=== PATIENT | female | born 1935 | race Caucasian/White ===

== ENCOUNTER 2024-04-01 11:23 | Emergency (ER) | payer MEDICARE ==
--- NOTE | 2024-04-01 11:25 | ERPHSYRPT ---
- History of Present Illness Time Seen by Provider: 04/01/24 11:24 Source: patient, family Exam Limitations: no limitations Physician History: This is an 88-year-old white female patient who arrives by private vehicle accompanied by family member. She has a primary care provider of Dr. Bonner. According to the patient's family member, patient was seen in the clinic today because the patient had swelling and tenderness that she describes as sharp, and redness. She is also has complaints of generalized weakness. Patient has a history of significant dementia and has 24-hour care at home. Patient has a history of hypertension, hyperlipidemia and gastroesophageal reflux disease. Patient denies abdominal pain. Patient denies chest pain and patient denies shortness of breath Timing/Duration: yesterday Severity: mild (To moderate) Modifying Factors: Improves With: nothing Associated Symptoms: weakness (Generalized) Allergies/Adverse Reactions: Sulfa (Sulfonamide Antibiotics) [Sulfa(Sulfonamide Antibiotics)] Allergy (Verified 06/08/12 13:37) Hives Home Medications: Amlodipine Besylate 5 mg [Norvasc 5 mg] 5 mg PO DAILY 04/01/24 [History] Carvedilol 3.125 mg [Coreg 3.125 MG] 3.125 mg PO BID 04/01/24 [History] Clopidogrel Bisulfate [Clopidogrel] 75 mg PO DAILY 04/01/24 [History] Lisinopril 20 mg [Zestril 20 MG] 20 mg PO DAILY 04/01/24 [History] Memantine HCl 10 mg PO BID 04/01/24 [History] PANTOPRAZOLE 40 mg Tablet [Protonix 40MG Tablet] 40 mg PO DAILY 04/01/24 [History] Sennosides/Docusate Sodium [Senna Plus 8.6-50 mg Tablet] 1 each PO DAILY 04/01/24 [History] Simvastatin 20Mg [Zocor 20Mg] 20 mg PO DAILY 04/01/24 [History] Hx Tetanus, Diphtheria Vaccination/Date Given: No Hx Influenza Vaccination/Date Given: Yes Hx Pneumococcal Vaccination/Date Given: Yes Travel Risk - International Travel Have you traveled outside of the country in past 3 weeks: No - Emerging Infectious Disease Are you exhibiting symptoms associated with any current EIDs: No - Review of Systems Constitutional: Weakness Eyes: No Symptoms (Neurolysed) Ears, Nose, & Throat: No Symptoms Respiratory: No Symptoms Cardiac: No Symptoms Abdominal/Gastrointestinal: No Symptoms Genitourinary Symptoms: No Symptoms Musculoskeletal: Other (Right lower extremity swelling, redness and sharp tenderness) Skin: Cellulitis (Questionable right lower extremity) Neurological: No Symptoms Psychological: No Symptoms Endocrine: No Symptoms Hematologic/Lymphatic: No Symptoms Immunological/Allergic: No Symptoms All Other Systems: Reviewed and Negative - Past Medical History Pertinent Past Medical History: No - Past Surgical History Past Surgical History: No - Social History Smoking Status: Never smoker Exposure to second hand smoke: No Drug Use: none Patient Lives Alone: No - Nursing Vital Signs Nursing Vital Signs: Initial Vital Signs Temperature 97.0 F 04/01/24 11:53 Pulse Rate 77 04/01/24 11:53 Respiratory Rate 16 04/01/24 11:53 Blood Pressure 103/69 04/01/24 11:53 O2 Sat by Pulse Oximetry 98 04/01/24 11:53 Pain Scale Pain Intensity 4 - Physical Exam General Appearance: no apparent distress, alert, anxiety, other (Pleasantly confused) Eye Exam: PERRL/EOMI, eyes nml inspection Ears, Nose, Throat Exam: normal ENT inspection, moist mucous membranes Neck Exam: normal inspection, non-tender, supple, full range of motion Respiratory Exam: normal breath sounds, lungs clear, airway intact, No chest tenderness, No respiratory distress Cardiovascular Exam: regular rate/rhythm, normal heart sounds, normal peripheral pulses Gastrointestinal/Abdomen Exam: soft, normal bowel sounds, No tenderness Pelvic Exam: not done Rectal Exam: not done Back Exam: normal inspection, normal range of motion, No CVA tenderness, No vertebral tenderness Extremity Exam: normal range of motion, pelvis stable, swelling (Right lower extremity with associated redness and tenderness), tenderness (Right lower extremity with associated swelling and redness) Neurologic Exam: alert, cooperative, 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 QTc is 414.) Ordered Tests: Active Orders 24 hr Category Date Time Status Shrimper STAT Care 04/01/24 12:06 Active EKG-ER Only STAT Care 04/01/24 12:06 Active IV Insertion STAT Care 04/01/24 12:06 Active Pulse Oximetry (ED) STAT Care 04/01/24 12:06 Active VENOUS UNILAT/LIMITED EXTREMIT [US] Stat Exams 04/01/24 12:07 Completed CBC W DIFF Stat Lab 04/01/24 12:30 Completed CMP Stat Lab 04/01/24 12:30 Completed CULTURE,URINE Stat Lab 04/01/24 12:58 Received MAGNESIUM Stat Lab 04/01/24 12:30 Completed MONO SCREEN Stat Lab 04/01/24 12:30 Completed NT PRO BNPII Stat Lab 04/01/24 12:30 Completed TROPONIN Q4H Lab 04/01/24 12:30 Completed TROPONIN Q4H Lab 04/01/24 16:15 Ordered TROPONIN Q4H Lab 04/01/24 20:15 Ordered UA W/RFX UR CULTURE Stat Lab 04/01/24 12:58 Completed Lab/Rad Data: Laboratory Result Diagrams 04/01/24 12:30 04/01/24 12:30 Laboratory Results 04/01/24 04/01/24 04/01/24 Range/Units 12:58 12:30 12:30 WBC (3.98-10.04) x10^3/uL RBC (3.93-5.22) x10^6/uL Hgb (11.2-15.7) g/dL Hct (34.1-44.9) % MCV (79.4-94.8) fL MCH (25.6-32.2) pg MCHC (32.2-35.5) g/dL RDW (11.7-14.4) % Plt Count (182-369) x10^3/uL MPV (9.4-12.3) fL Gran % (34.0-71.1) % Immature Gran % (Auto) (0.001-0.429) % Nucleat RBC Rel Count (0.00-0.2) % Eos # (Auto) (0.04-0.36) x10^3/uL Immature Gran # (Auto) (0.001-0.031) x10^3u/L Absolute Lymphs (auto) (1.18-3.74) x10^3/uL Absolute Monos (auto) (0.24-0.86) x10^3/uL Absolute Nucleated RBC (0.00-0.012) x10^3u/L Lymphocytes % (19.3-51.7) % Monocytes % (4.7-12.5) % Eosinophils % (0.7-5.8) % Basophils % (0.1-1.2) % Absolute Granulocytes (1.56-6.13) x10^3/uL Basophils # (0.01-0.08) x10^3/uL Sodium (135-145) mmol/L Potassium (3.5-5.1) mmol/L Chloride (98-107) mmol/L Carbon Dioxide (22-30) mmol/L Anion Gap (5-15) MEQ/L BUN (7-17) mg/dL Creatinine (0.52-1.04) mg/dL Estimated GFR ML/MIN Glucose (74-106) mg/dL Calcium (8.4-10.2) mg/dL Magnesium (1.6-2.3) mg/dL Total Bilirubin (0.2-1.3) mg/dL AST (14-36) U/L ALT (0-35) U/L Alkaline Phosphatase (38-126) U/L Troponin I (0.000-0.033) ng/mL NT-Pro-B Natriuret Pep (<300) pg/mL Serum Total Protein (6.3-8.2) g/dL Albumin (3.5-5.0) g/dL Urine Color Dark Yellow A (Yellow) Urine Appearance Clear (Clear) Urine pH 5.5 (4.6-8.0) Ur Specific [place]rie 1.025 (1.005-1.030) Urine Protein Trace A (Negative) Urine Glucose (UA) Negative (Negative) mg/dL Urine Ketones Trace A (Negative) Urine Blood Negative (Negative) Urine Nitrite Negative (Negative) Urine Bilirubin Negative (Negative) Urine Urobilinogen 0.2 (0.2) mg/dL Ur Leukocyte Esterase Negative (Negative) U Hyaline Cast (Auto) NONE SEEN (0-2) /LPF Urine Microscopic RBC 0-2 (0-5) /HPF Urine Microscopic WBC 3-5 (0-5) /HPF Ur Epithelial Cells None Seen (None Seen) /HPF Urine Bacteria None Seen (None Seen) /HPF Urine Culture Reflexed YES (NO) Monoscreen NEGATIVE (NEGATIVE) Influenza Type A Ag NEGATIVE (NEGATIVE) Influenza Type B Ag NEGATIVE (NEGATIVE) RSV (PCR) NEGATIVE (NEGATIVE) SARS-CoV-2 (PCR) NEGATIVE (NEGATIVE) 04/01/24 04/01/24 04/01/24 Range/Units 12:30 12:30 12:30 WBC 7.3 (3.98-10.04) x10^3/uL RBC 3.93 (3.93-5.22) x10^6/uL Hgb 12.2 (11.2-15.7) g/dL Hct 36.2 (34.1-44.9) % MCV 92.1 (79.4-94.8) fL MCH 31.0 (25.6-32.2) pg MCHC 33.7 (32.2-35.5) g/dL RDW 11.8 (11.7-14.4) % Plt Count 155 L (182-369) x10^3/uL MPV 9.5 (9.4-12.3) fL Gran % 69.0 (34.0-71.1) % Immature Gran % (Auto) 0.4 (0.001-0.429) % Nucleat RBC Rel Count 0.0 (0.00-0.2) % Eos # (Auto) 0.04 (0.04-0.36) x10^3/uL Immature Gran # (Auto) 0.03 (0.001-0.031) x10^3u/L Absolute Lymphs (auto) 1.26 (1.18-3.74) x10^3/uL Absolute Monos (auto) 0.92 H (0.24-0.86) x10^3/uL Absolute Nucleated RBC 0.00 (0.00-0.012) x10^3u/L Lymphocytes % 17.2 L (19.3-51.7) % Monocytes % 12.6 H (4.7-12.5) % Eosinophils % 0.5 L (0.7-5.8) % Basophils % 0.3 (0.1-1.2) % Absolute Granulocytes 5.05 (1.56-6.13) x10^3/uL Basophils # 0.02 (0.01-0.08) x10^3/uL Sodium 139 (135-145) mmol/L Potassium 4.7 (3.5-5.1) mmol/L Chloride 105 (98-107) mmol/L Carbon Dioxide 28 (22-30) mmol/L Anion Gap 10.7 (5-15) MEQ/L BUN 22 H (7-17) mg/dL Creatinine 0.69 (0.52-1.04) mg/dL Estimated GFR 83.4 ML/MIN Glucose 77 (74-106) mg/dL Calcium 9.3 (8.4-10.2) mg/dL Magnesium 2.2 (1.6-2.3) mg/dL Total Bilirubin 0.70 (0.2-1.3) mg/dL AST 31 (14-36) U/L ALT 13 (0-35) U/L Alkaline Phosphatase 44 (38-126) U/L Troponin I < 0.012 (0.000-0.033) ng/mL NT-Pro-B Natriuret Pep 219 (<300) pg/mL Serum Total Protein 7.0 (6.3-8.2) g/dL Albumin 4.1 (3.5-5.0) g/dL Urine Color (Yellow) Urine Appearance (Clear) Urine pH (4.6-8.0) Ur Specific [place] (1.005-1.030) Urine Protein (Negative) Urine Glucose (UA) (Negative) mg/dL Urine Ketones (Negative) Urine Blood (Negative) Urine Nitrite (Negative) Urine Bilirubin (Negative) Urine Urobilinogen (0.2) mg/dL Ur Leukocyte Esterase (Negative) U Hyaline Cast (Auto) (0-2) /LPF Urine Microscopic RBC (0-5) /HPF Urine Microscopic WBC (0-5) /HPF Ur Epithelial Cells (None Seen) /HPF Urine Bacteria (None Seen) /HPF Urine Culture Reflexed (NO) Monoscreen (NEGATIVE) Influenza Type A Ag (NEGATIVE) Influenza Type B Ag (NEGATIVE) RSV (PCR) (NEGATIVE) SARS-CoV-2 (PCR) (NEGATIVE) - Progress Progress: unchanged Progress Note: 04/01/24 12:39 My medical decision making and the assignment of moderate complexity to this patient's medical issue today is based on review of the patient's past medical history, review of patient medication list, reviewed patient drug allergy list, history present illness and physical findings on examination. The workup in this patient includes placement of intravenous line, urinalysis, CBC, CMP, blood cultures, twelve-lead EKG, troponin level, right lower extremity venous Doppler. Differential diagnosis includes but is not limited to urinary tract infection, dehydration, right lower extremity DVT, electrolyte abnormalities, arrhythmia, myocardial infarction 04/01/24 14:25 I interpreted the patient's laboratory data results. Based on laboratory data results, there are no acute, emergent medical issues. The venous Doppler of the right lower extremity was interpreted by the radiologist and I reviewed the impression. The impression states occluding and nonoccluding thrombi seen throughout the right femoral and popliteal veins. There is DVT present 04/01/24 14:57 I spoke with the patient and her daughter. The daughter and patient do not want to be placed in observation in the hospital setting. The patient has 24-hour Alzheimer dementia care and they provide her medications. I will provide her with a low-dose Lovenox injection subcutaneous now and 10 mg of Eliquis. We will then remotely send a prescription for 10 mg of Eliquis orally twice a day for 7 days. We have made arrangements for this patient to follow-up with her primary care provider, Dr. Bonner, on April 06 at 10:45 AM. 04/01/24 15:07 The patient is on Plavix for a suppose it TIA/CVA episode. I do not want to take the Plavix away at this time. I also do not want to cause a bleeding issue and therefore we will adjust the dose of the Eliquis to 5 mg twice a day. Patient's daughter was instructed to call Dr. Bonner's office to obtain further instructions and management to determine if the Plavix should be stopped and full dosing of Eliquis to treat DVT should be started. Counseled pt/family regarding: lab results, diagnosis, need for follow-up, rad results Medical Desision Making - Independent Historian Additional History obtained from: Child, Family - Diagnostic Testing Diagnostic test were ordered, analyzed, and reviewed by me: Yes Radiological Interpretation: Reviewed by me, Teleradiologist Report - Risk of complications The pt has a mod risk of morbidity or mortality based on: Need for prescription drug management - Departure Departure Disposition: Home Clinical Impression: Right leg DVT Condition: Stable Critical Care Time: No Referrals: ROSA BONNER MD [Primary Care Provider] - Follow up/PCP as directed (Appointment with Dr. Bonner on Saturday April 06, 2024 @ 10:45 am) Additional Instructions: Take all your medications as prescribed. Follow-up with Dr. Bonner on Saturday, April 06, 2024 at 10:45 AM. Prescriptions: Apixaban [Eliquis] 5 mg PO BID 7 Days #14 tablet
[2024-04-01 12:00] VITALS: TEMP 97
[2024-04-01 12:31] LABS: Absolute Neutrophil Ct (ANC) 5.05 x10^3/uL (1.56-6.13); BASOPHIL % 0.3 % (0.1-1.2); Basophil (Absolute #) 0.02 x10^3/uL (0.01-0.08); Eosinophil % 0.5 % (0.7-5.8); Eosinophil (Absolute #) 0.04 x10^3/uL (0.04-0.36); Hematocrit 36.2 % (34.1-44.9); Hemoglobin 12.2 g/dL (11.2-15.7); IMMATURE GRAN # 0.03 x10^3u/L (0.001-0.031); IMMATURE GRAN % 0.4 % (0.001-0.429); Lymphocyte (Absolute #) 1.26 x10^3/uL (1.18-3.74); Lymphocytes % 17.2 % (19.3-51.7); Mean Cell Volume 92.1 fL (79.4-94.8); Mean Corpuscular Hgb Concent. 33.7 g/dL (32.2-35.5); Mean Platelet Volume 9.5 fL (9.4-12.3); Monocyte (Absolute #) 0.92 x10^3/uL (0.24-0.86); Monocytes % 12.6 % (4.7-12.5); Platelet Count 155 x10^3/uL (182-369); Red Blood Count 3.93 x10^6/uL (3.93-5.22); Red Cell Distribution Width 11.8 % (11.7-14.4); White Blood Count 7.3 x10^3/uL (3.98-10.04)
[2024-04-01 12:47] LABS: ALBUMIN 4.1 g/dL (3.5-5.0); ANION GAP 10.7 MEQ/L (5-15); BILIRUBIN,TOTAL 0.7 mg/dL (0.2-1.3); Calcium 9.3 mg/dL (8.4-10.2); Creatinine 1 0.69 mg/dL (0.52-1.04); EST GLOMERULAR FILTRATION RATE 83.4 ML/MIN; MAGNESIUM 2.2 mg/dL (1.6-2.3); Potassium 4.7 mmol/L (3.5-5.1)
[2024-04-01 13:00] LABS: NT PRO BNPII 219 pg/mL (<300); TROPONIN < 0.012 ng/mL (0.000-0.033)
[2024-04-01 13:10] LABS: INFLUENZA A NEGATIVE (NEGATIVE); INFLUENZA B NEGATIVE (NEGATIVE); RESPIRATORY SYNCTIAL VIRUS NEGATIVE (NEGATIVE); SARS-CoV-2 Xpert Express NEGATIVE (NEGATIVE)
[2024-04-01 13:31] LABS: Appearance Clear (Clear); Bacteria None Seen /HPF (None Seen); Bilirubin Negative (Negative); Blood Negative (Negative); Epithelial Cells None Seen /HPF (None Seen); Glucose, Urine Negative (Negative); Hyaline Casts NONE SEEN /LPF (0-2); Ketones Trace (Negative); Leukocyte Esterase Negative (Negative); Nitrite Negative (Negative); Ph 5.5 (4.6-8.0); Protein,Urine Dip Trace (Negative); RBC 0-2 /HPF (0-5); Specific Gravity 1.025 (1.005-1.030); Urobilinogen 0.2 mg/dL (0.2)
--- NOTE | 2024-04-01 13:51 | XRAY ---
Indication: Erythema and swelling. Current blood thinner therapy. Two-dimensional sonogram and color Doppler imaging major venous vessels right leg performed. Comparison: None Occluding and nonoccluding thrombi seen throughout the femoral and popliteal veins. No thrombus in the remaining visualized common femoral, posterior tibial, and greater saphenous veins. Patent veins demonstrate normal compressibility and normal venous waveforms. Impression: Occluding/nonoccluding DVTs in femoral and popliteal veins.
[2024-04-01 14:30] VITALS: BP 121/69; RESP 18
[2024-04-01] MEDS ORDERED: ENOXAPARIN SODIUM SQ ONE (14:58)
[2024-04-01] MEDS: ENOXAPARIN SODIUM SQ ONE (14:59)
[2024-04-01] MEDS: ELIQUIS 2.5 MG TABLET PO ONE ×2 (15:06→15:09)
[2024-04-01 15:12] VITALS: PULSE 88; O2SAT 98
== END 2024-04-01 15:20 | disposition home or self-care (01) ==
LOC: ED 11:23
DX: I82.401 Acute embolism and thrombosis of unspecified deep veins of right lower extremity (principal); R53.1 Weakness; I10 Essential (primary) hypertension; E78.5 Hyperlipidemia, unspecified; Z79.01 Long term (current) use of anticoagulants; Z79.02 Long term (current) use of antithrombotics/antiplatelets; Z79.899 Other long term (current) drug therapy
CPT/HCPCS: 0241U; 36415; 80053; 81001; 83735; 83880; 84484; 85025; 86308; 87086; 93005; 93041; 93971; 94760; 96372; 99285; 99284; J1650; A9270-GY